=== PATIENT | male | born 1975 | race Caucasian/White ===

== ENCOUNTER → 2018-09-10 17:19 | Outpatient (CLI) | payer BC, SELFPAY ==
[2018-09-10 17:50] LABS: Amphetamine Urine VISTA NEGATIVE (<1000 ng/mL); Barbiturate Urine VISTA NEGATIVE (< 200 ng/mL); Benzodiazepine Urine VISTA NEGATIVE (< 200 ng/mL); Cocaine Urine VISTA NEGATIVE (< 300 ng/mL); Ecstacy Urine VISTA NEGATIVE (< 500 ng/mL); Methadone Urine VISTA NEGATIVE (< 300 ng/mL); PCP Urine VISTA NEGATIVE (< 25 ng/mL); THC Urine VISTA NEGATIVE (< 50 ng/mL); Vista UDS pH Range 5
== END ==
PROVIDERS: Family Provider Family Medicine; PCP Family Medicine; Referring Provider Anesthesiology Pain Medicine; Visit Provider Anesthesiology Pain Medicine
DX: F11.20 Opioid dependence, uncomplicated (principal)
CPT/HCPCS: 80307

== ENCOUNTER → 2018-09-12 16:08 | Outpatient (CLI) | payer BC, SELFPAY ==
[2018-09-12 12:19] LABS: CRP < 2.90 mg/L (0.0-3.0); Cholesterol 181 mg/dL (200); High Density Lipoprotein 47 mg/dL; Triglycerides 102 mg/dL; Very Low Density Lipoprotein 20 mg/dL (5-40)
--- OUTSIDE RECORDS SUMMARY | 2018-12-07 00:09 | XMS RPT_ITS ---
:1975 Author Organization [facility] Care Team Providers Name Role Phone Alfonso Wise Attending Unavailable Alfonso Wise Referring Unavailable Magdy Estevez Primary Care Unavailable Magdy Estevez Attending Unavailable Magdy Estevez Referring Unavailable Magdy Estevez Primary Care Unavailable Magdy Estevez Attending Unavailable HerbMagdy lam Referring Unavailable HerbMagdy lam Primary Care Unavailable PROBLEMS PROBLEMS DATE TYPE CONDITION / CODE ATTENDING STATUS SOURCE 10/13/2018 Unknown I65.29 - Occlusion Magdy Estevez Active [place] and stenosis of Community unspecified carotid Hospital artery / Repository I65.29(ICD-10) 10/13/2018 Unknown R07.9 - Chest pain, Magdy Estevez Active [place] unspecified / Community R07.9(ICD-10) Hospital Repository 09/10/2018 Unknown F11.20 - Opioid Alfonso Wise Active [place] dependence, Community uncomplicated / Hospital F11.20(ICD-10) Repository PROCEDURES PROCEDURES No Procedure Records FoundRESULTS RESULTS CAROTID DUPLEX Observed: 09/15/2018 Status: F Source: [place] [facility] [address] [place] [address] Carotid Duplex Ultrasound 09/13/18 0848 MR#: [id number] Acct: [id number] Name: TEE MESSER Rep #: [id number] : 1975 42 From: Gumaro Pollock MD Attending Dr: Magdy Estevez DO Status: REG CLI Ordering Dr: Magdy Estevez DO Date: 09/13/18 Location: [facility] Sex: M C Admitted: Reason For Study: Carotid atherosclerosis Rt. Velocities/BP Lt. Velocities/BP Prox CCA 124.0/28.3 cm/sec. Prox CCA 142.0/32.4 cm/sec. Mid CCA 127.0/25.1 cm/sec. Mid CCA 141.0/38.3 cm/sec. Dist CCA 105.0/31.4 cm/sec. Dist CCA 101.0/34.4 cm/sec. Prox ICA 72.9/30.7 cm/sec. Prox ICA 74.9/31.4 cm/sec. Mid ICA 65.8/27.0 cm/sec. Mid ICA 71.5/26.7 cm/sec. Dist ICA 74.9/29.4 cm/sec. Dist ICA 65.1/26.4 cm/sec. Rt. ICA/CCA = .59. Lt. ICA/CCA = .53. Prox ECA 122.0/28.3 cm/sec. Prox ECA 119.0/29.2 cm/sec. Rt. Vert. 39.7/10.2 cm/sec. Lt. Vert. 53.4/15.8 cm/sec. Right Extracranial There is no significant atherosclerotic plaque noted in the right common carotid artery. There is no significant atherosclerotic plaque noted in the right internal carotid artery. There is no significant atherosclerotic plaque noted in the right external carotid artery. Antegrade flow is noted in the right vertebral artery. Left Extracranial There is no significant atherosclerotic plaque noted in the left common carotid artery. There is no significant atherosclerotic plaque noted in the left internal carotid artery. There is no significant atherosclerotic plaque noted in the left external carotid artery. Antegrade flow is noted in the left vertebral artery. Procedure Carotid Duplex 83109. Exam performed in department. Interpretation Summary No significant atherosclerotic plaque or stenosis noted in the internal carotid arteries bilaterally. Flow within the vertebral arteries is antegrade bilaterally. Ordering Physician: Magdy Estevez Referring Physician: Magdy Estevez Performed By: Lina Rodriguez RVT 09/15/18954 Date Gumaro Pollock MD CC: Magdy Estevez DO Date Dictated: 09/13/18847 Date Transcribed: 09/15/18954 Gis Web Developer: Signed LIPID PROFILE Collected: 09/12/2018 Status: F Source: [place] 8:05 AM [facility] REPOSITORY TYPE CODE TESTS RESULT OUT OF RANGE REFERENCE UNITS LAB L501.4900 200 mg/dL Normal CHOL 181 Result Comment: <200 mg/dL Desirable 200-240 mg/dL Borderline >240 mg/dL High Risk LAB L501.5000 mg/dL Normal TRIG 102 Result Comment: The drugs N-Acetylcysteine and Metamizole may falsely depress this assay. Serum Triglycerides Reference Interval Normal <150 mg/dL Borderline high 150 - 199 mg/dL High 200 - 499 mg/dL Very High > or = 500 mg/dL LAB L501.6400 mg/dL Normal HDL 47 Result Comment: The drugs N-Acetylcysteine and Metamizole may falsely depress this assay. Reference Range HDL <40 mg/dL Low HDL Cholesterol HDL >or= 60 mg/dL High HDL Cholesterol LAB L501.6500 0-130 mg/dL Normal LDL 114 LAB L501.6600 5-40 mg/dL Normal VLDL 20 Performed By: #### L500.4100, L501.6710 #### [facility] [address] [place], [address] CRP Collected: 09/12/2018 Status: F Source: [place] 8:05 AM [facility] REPOSITORY TYPE CODE TESTS RESULT OUT OF RANGE REFERENCE UNITS LAB L501.6710 0.0-3.0 mg/L Normal < 2.90 C-REACTIVE PROT Result Comment: C-Reactive Protein (CRP) provides useful information for the diagnosis, therapy and monitoring of inflammatory processes and associated diseases. For the evaluation of Relative Risk for Cardiovascular Disease, a High Sensitivity CRP (HSCRP) should be ordered. Performed By: #### L500.4100, L501.6710 #### [facility] [address] [place], [address] URINE DRUG SCREEN Collected: 09/10/2018 Status: F Source: [place] (VISTA) 5:26 PM [facility] REPOSITORY Order Comment: Comments: [id number] List of Drugs Taken or Suspected? UNK TYPE CODE TESTS RESULT OUT OF RANGE REFERENCE UNITS LAB L505.0075 TO BE Normal CONFIRMED Result Comment: CONFIRMATORY TESTING FOR ALL POSITIVE URINE DRUG SCREEN RESULTS WILL ONLY BE SENT OUT UPON PHYSICIAN ORDER. VISTA Urine Drug Screen methods provide only preliminary analytical test results. A more specific alternate chemical method must be used in order to obtain a confirmed analytical result. Gas chromatography/mass spectrometery (GC/MS) is the preferred confirmatory method. Clinical consideration and professional judgement should be applied to any drug of abuse test result, particularly when preliminary positive results are used. URINE TCA TESTING MUST BE ORDERED SEPARATELY. USE TEST MNEMONIC: [facility] LAB L505.5005 VISTA UDS PH 5 Normal LAB L505.5015 <1000 ng/mL AMPHETAMINES Normal NEGATIVE LAB L505.5025 < 200 ng/mL BARBITIURATES Normal NEGATIVE LAB L505.5035 < 200 ng/mL BENZODIAZIPINE Normal NEGATIVE LAB L505.5045 < 300 ng/mL COCAINE Normal NEGATIVE LAB L505.5055 < 500 ng/mL ECSTACY Normal NEGATIVE LAB L505.5065 < 300 ng/mL METHADONE Normal NEGATIVE LAB L505.5075 < 300 ng/mL OPIATES Normal NEGATIVE LAB L505.5085 < 25 ng/mL PCP Normal NEGATIVE LAB L505.5095 < 50 ng/mL THC Normal NEGATIVE Performed By: #### L505.5000 #### [facility] [address] [place], [address] MISCELLANEOUS LAB Collected: 09/10/2018 Status: F Source: [place] PROCEDURE 5:26 PM [facility] REPOSITORY Order Comment: Comments: [id number] Test(s) Ordered: [id number] TYPE CODE TESTS RESULT OUT OF RANGE REFERENCE UNITS LAB L801.1541 Normal [facility] LAB TEST Result Comment: [id number] 6+OXYCODONE-BUND (ng/mL) DRUG RESULT SCREEN CUTOFF ____ Amphetamines,Urine Negative ng/mL 1000 Amphetamine test includes Amphetamine and Methamphetamine. Barbiturates Negative ng/mL 200 Benzodiazepines Negative ng/mL 200 Cannabinoid Negative ng/mL 20 Cocaine (Metab) Negative ng/mL 300 Opiates Negative ng/mL 300 Opiates test includes Codeine, Morphine, Hydromorphone, Hydrocodone. Oxycodone/Oxymorphone,Urine Negative ng/mL 300 Test includes Oxydodone and Oxymorphone. TESTING PERFORMED AT [facility]. ORIGINAL REPORT ON FILE IN LAB CONTAINS ADDITIONAL TEST SITE INFORMATION. Performed By: #### L801.1541 #### [facility] [address] [place], [address] ALLERGIES ALLERGIES DATE TYPE / CODE NAME / CODE REACTION SEVERITY SOURCE 10/25/2013 Drug No Known Unknown [facility] Allergy/4160 Allergies/F00 Hospital [address]5822(SNOMED [id number](RXNOR Repository CT) M) ENCOUNTERS ENCOUNTERS ADMIT/DISCHARGE ACCOUNT ADMITTING ENCOUNTER LOCATION SOURCE NUMBER CLASS 09/13/2018 [id number] Ambulatory [place] [facility] ing:[facility] Repository 09/12/2018 [id number] Ambulatory [place] 9 [facility] ing:LAB Repository 09/10/2018 [id number] Ambulatory [place] 8 [facility] ing:LAB Repository PAYERS PAYERS ENCOUNTER GUARANTOR PAYER SUBSCRIBER SOURCE 09/13/2018 TEE A Primary TEE A [place] [id number] Insurance:ANTHEMPolic [place]: [facility] [id number] [id number] Repository 23930Mnv: [phone]) Date:6658-29-38GL [phone] () [id number], [place] [address]GN: 09/13/2018 Secondary NOT GIVENUNK [place] Insurance:SELF PAY [facility] Number: Effective Repository Date:2018-09-11 09/12/2018 TEE A Primary TEE A [place] [id number] Insurance:ANTHEMPolic [place]DOB: [facility] y Number: [id number], [place] [id number] Repository [address]Qjb: [phone]) Date:7625-89-57HC [phone] () [id number], [place] [address]HE: 09/12/2018 Secondary NOT GIVENUNK [place] Insurance:SELF PAY [facility] Number: Effective Repository Date:2018-09-12 09/10/2018 TEE A Primary TEE A [place] [id number] Insurance:ANTHEMPolic [place]EV[place]DOB: [facility] y Number: [id number] [id number] Repository [address]Mne: [phone]) Date:3386-06-31NB [phone] () [id number], [place] [address]FO: 09/10/2018 Secondary NOT GIVENUNK [place] Insurance:SELF PAY [facility] Number: Effective Repository Date:2018-09-10
== END ==
PROVIDERS: Family Provider Family Medicine; PCP Family Medicine; Referring Provider Family Medicine; Visit Provider Family Medicine
DX: I65.29 Occlusion and stenosis of unspecified carotid artery (principal); R07.9 Chest pain, unspecified
CPT/HCPCS: 36415; 80061; 86140

== ENCOUNTER → 2018-09-13 08:37 | Outpatient (CLI) | payer BC, SELFPAY ==
--- NOTE | 2018-09-13 08:42 | CDU_ITS ---
Reason For Study: Carotid atherosclerosis Rt. Velocities/BP Lt. Velocities/BP Prox CCA 124.0/28.3 cm/sec. Prox CCA 142.0/32.4 cm/sec. Mid CCA 127.0/25.1 cm/sec. Mid CCA 141.0/38.3 cm/sec. Dist CCA 105.0/31.4 cm/sec. Dist CCA 101.0/34.4 cm/sec. Prox ICA 72.9/30.7 cm/sec. Prox ICA 74.9/31.4 cm/sec. Mid ICA 65.8/27.0 cm/sec. Mid ICA 71.5/26.7 cm/sec. Dist ICA 74.9/29.4 cm/sec. Dist ICA 65.1/26.4 cm/sec. Rt. ICA/CCA = .59. Lt. ICA/CCA = .53. Prox ECA 122.0/28.3 cm/sec. Prox ECA 119.0/29.2 cm/sec. Rt. Vert. 39.7/10.2 cm/sec. Lt. Vert. 53.4/15.8 cm/sec. Right Extracranial There is no significant atherosclerotic plaque noted in the right common carotid artery. There is no significant atherosclerotic plaque noted in the right internal carotid artery. There is no significant atherosclerotic plaque noted in the right external carotid artery. Antegrade flow is noted in the right vertebral artery. Left Extracranial There is no significant atherosclerotic plaque noted in the left common carotid artery. There is no significant atherosclerotic plaque noted in the left internal carotid artery. There is no significant atherosclerotic plaque noted in the left external carotid artery. Antegrade flow is noted in the left vertebral artery. Procedure Carotid Duplex 03050. Exam performed in department. Interpretation Summary No significant atherosclerotic plaque or stenosis noted in the internal carotid arteries bilaterally. Flow within the vertebral arteries is antegrade bilaterally. Ordering Physician: Magdy Estevez Referring Physician: Magdy Estevez Performed By: Lina Rodriguez RVT
== END ==
PROVIDERS: Family Provider Family Medicine; PCP Family Medicine; Referring Provider Family Medicine; Visit Provider Family Medicine
DX: I65.29 Occlusion and stenosis of unspecified carotid artery (principal)
CPT/HCPCS: 93880

== ENCOUNTER 2021-02-04 14:11 | Outpatient (RCR) | payer BC, SELFPAY | END 2021-04-19 23:59 | LOC: IMMUN 14:11 | PROVIDERS: PCP Family Medicine; Visit Provider Family Medicine | DX: Z23 Encounter for immunization (principal) | CPT/HCPCS: 0001A; 0002A; 91300 ==

== ENCOUNTER → 2021-07-15 16:16 | Outpatient (CLI) | payer BC, SELFPAY | PROVIDERS: PCP Family Medicine; Visit Provider Family Medicine | DX: Z20.828 Contact with and (suspected) exposure to other viral communicable diseases (principal) | CPT/HCPCS: 87635; U0005; U0003 ==

== ENCOUNTER → 2024-04-14 | Outpatient (CLI) | payer BC, SELFPAY ==
--- NOTE | 2024-04-14 11:42 | RAD_ITS ---
STUDY: X-RAY - CERVICAL SPINE REASON FOR EXAM: Male, 48 years old. R C6 RADICULOPATHY TECHNIQUE: 6 view(s) of the cervical spine were obtained. COMPARISON: None FINDINGS: Normal anterior atlantoaxial articulation. Normal odontoid process. Straightening of the cervical lordosis. Normal vertebral bodies. Endplate spurring at the C5-C7 vertebral endplates. Normal disc space heights. Uncovertebral spurring narrowing the C3-4 intervertebral neuroforamina. The soft tissue structures are unremarkable. RAD/Cerv Spine 4 or 5 Views IMPRESSION: Degenerative changes as noted of the visualized cervical spine. Electronically Signed: Edward Downey DO at 18:27 EDT ,
== END | disposition home or self-care (01) ==
PROVIDERS: PCP Family Medicine; Referring Provider Family Medicine; Visit Provider Family Medicine
DX: M54.12 Radiculopathy, cervical region (principal)
CPT/HCPCS: 72050

== ENCOUNTER → 2024-05-16 | Outpatient (CLI) | payer BC, SELFPAY ==
--- NOTE | 2024-05-16 06:41 | MRI_ITS ---
STUDY: MRI CERVICAL SPINE WITHOUT CONTRAST REASON FOR EXAM: Male, 48 years old. RADICULOPATHY, R ARM PAIN WITH THUMB NUMBNESS TECHNIQUE: Standardized fat and water weighted pulse sequences were obtained in the sagittal and axial planes. COMPARISON: X-ray April 14, 2024 FINDINGS: Normal foramen magnum and brainstem-cervical cord junction. Normal craniovertebral junction. Normal anterior atlantoaxial articulation. Normal odontoid process. There is reversal of the normal cervical lordosis. There is no acute fracture. Normal vertebral bodies and posterior osseous elements. C2-3: Normal endplates. Normal disc height, signal and morphology. Normal central canal and intervertebral neural foramina. C3-4: Mild spurring to the left. Normal central canal and intervertebral neural foramina. C4-5: Normal endplates. Normal disc height, signal and morphology. Normal central canal and intervertebral neural foramina. C5-6: Spurring with right paracentral disc protrusion, series 12 image 69. Moderate canal stenosis. Right foraminal narrowing. C6-7: Spurring with central left paracentral disc protrusion, series 12 image 37. Moderate canal stenosis. C7-T1: Normal endplates. Normal disc height, signal and morphology. Normal central canal and intervertebral neural foramina. Normal cervical cord. Normal visualized soft tissue structures. MRI/Spine Cervical (Routine) IMPRESSION: Degenerative change with disc herniations and canal stenosis at C5-6 and C6-7. Electronically Signed: Raul Loving MD at 9:51 EDT ,
== END | disposition home or self-care (01) ==
PROVIDERS: PCP Family Medicine; Referring Provider Anesthesiology; Visit Provider Anesthesiology
DX: M54.12 Radiculopathy, cervical region (principal)
CPT/HCPCS: 72141